=== PATIENT | male | born 1965 | race Caucasian/White ===

== ENCOUNTER 2017-09-07 06:24 | Observation (INO) | payer OTHER ==
[~2017-09-07] VITALS: Ht 188 cm; Wt 79.4 kg
--- NOTE | 2017-09-07 06:35 | ED GI/GU/ABDOMINAL COMPLAINT ---
History of Present Illness General Chief Complaint: Abdominal Pain/Flank Pain Stated Complaint: ABD PAIN, V/ N Source: patient Exam Limitations: no limitations Vital Signs & Intake/Output Vital Signs & Intake/Output Vital Signs Date Time Temp Pulse Resp B/P B/P Pulse O2 O2 Flow FiO2 Mean Ox Delivery Rate 09/07 1301 98.0 50 16 143/63 96 Room Air 09/07 1045 98.5 85 18 116/59 98 Room Air 09/07 0900 98 Room Air 09/07 0808 98.2 09/07 0629 98.1 52 24 171/79 99 Room Air Allergies Coded Allergies: No Known Allergies (09/07/17) Triage Note: 52YO MALE TO RM 7 FROM HOME W/CO RLQ PAIN THAT RADIATES TO R FLANK SINCE 429. ALSO CO NAUSEA Triage Nurses Notes Reviewed? yes Onset: Gradual Duration: hour(s): Timing: recent history Quality/Severity: sharpness Location: right flank, right lower quadrant Radiation: RLQ Activities at Onset: sleep Prior Abdominal Problems: similar symptoms Associated Symptoms: nausea/vomiting HPI: 52 yo gentleman in prior good health presents with nearly 3 hours of right flank pain, radiating to the right lower quadrant, associated with nausea. 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 He can't get comfortable." No fever, chills, diarrhea, chest pain, dysuria. He is otherwise well. (Trinity ASTUDILLO,Farhad Panchal) Reconcile Medications Diazepam 5 MG TABLET 1 TAB PO AD PRN MUSCLE SPASMS (Reported) Hydromorphone HCl (Dilaudid) 2 MG TABLET 1 TAB PO Q6P PRN PAIN Ondansetron (Zofran Odt) 4 MG TAB.RAPDIS 1 TAB SL TID PRN NAUSEA Oxycodone HCl/Acetaminophen (Percocet 10-325 MG Tablet) 10 MG-325 MG TABLET 1 TAB PO Q4-6H PRN PAIN (Reported) Tamsulosin HCl (Flomax) 0.4 MG CAP.ER.24H 1 CAP PO DAILY Helga Martínez (Adrianna ASTUDILLO,Geneva Betancur) Past History Medical History Any Pertinent Medical History? see below for history Musculoskeletal: chronic pain Surgical History Surgical History: spinal fusion Family History Hx Contributory? No (Trinity ASTUDILLO,Farhad Panchal) Review of Systems Review of Systems Constitutional: Reports: no symptoms. EENTM: Reports: no symptoms. Respiratory: Reports: no symptoms. Cardiovascular: Reports: no symptoms. GI: Reports: no symptoms. Genitourinary: Reports: no symptoms. Musculoskeletal: Reports: no symptoms. Skin: Reports: no symptoms. Neurological/Psychological: Reports: no symptoms. Hematologic/Endocrine: Reports: no symptoms. Immunologic/Allergic: Reports: no symptoms. All Other Systems: Reviewed and Negative (Trinity ASTUDILLO,Farhad Panchal) Physical Exam Physical Exam General Appearance: well developed/nourished, moderate distress Head: atraumatic, normal appearance Eyes: Bilateral: normal appearance. Ears, Nose, Throat, Mouth: hearing grossly normal Neck: normal inspection, supple, full range of motion Respiratory: normal breath sounds, chest non-tender, no respiratory distress, quiet respiration, lungs clear Cardiovascular: regular rate/rhythm Gastrointestinal: normal bowel sounds, soft, mildtenderness at rlq. no rebound or guarding. Back: muscle spasm, no vertebral tenderness, right lumbar tenderness w/ spasm to palpation. Extremities: normal range of motion Neurologic/Psych: no motor/sensory deficits, awake, alert, oriented x 3 Skin: intact, normal color, warm/dry Core Measures ACS in differential dx? No Sepsis Present: No Sepsis Focused Exam Completed? No (Trinity ASTUDILLO,Farhad Panchal) Progress Differential Diagnosis: kidney stones vs appy vs other. Plan of Care: Orders Procedure Date/time Status Regular Diet 09/[address] in observation 09/07 1302 Active ED Holding Orders 09/07 1302 Active Vital Signs 09/07 1302 Active Code Status 09/07 1302 Active URINALYSIS 09/07 0642 Active LIPASE 09/07 0636 Complete HEPATIC FUNCTION PANEL 09/07 0636 Complete CBC WITHOUT DIFFERENTIAL 09/07 0636 Complete BASIC METABOLIC PANEL 09/07 0636 Complete AMYLASE 09/07 0636 Complete Current Medications Sig/Terra Start time Last Medication Dose Stop Time Status Admin Hydromorphone HCl 1 MG ONCE ONE 09/07 1315 UNVr (Dilaudid) 09/07 1316 Laboratory Tests 09/07/17 0640: Anion Gap 13, Estimated GFR > 60, BUN/Creatinine Ratio 23.8, Glucose 138 H, Calcium 10.6 H, Total Bilirubin 0.5, Direct Bilirubin 0.2, AST 75 H, ALT 117 H, Alkaline Phosphatase 85, Total Protein 7.9, Albumin 4.7, Amylase 70, Lipase 59, CBC w Diff NO MAN DIFF REQ, RBC 5.26, MCV 91.6, MCH 30.3, MCHC 33.1, RDW 13.3, MPV 8.4, Gran % 66.1, Lymphocytes % 25.5, Monocytes % 7.6, Eosinophils % 0.5, Basophils % 0.3, Absolute Granulocytes 8.4 H, Absolute Lymphocytes 3.3, Absolute Monocytes 1.0 H, Absolute Eosinophils 0.1, Absolute Basophils 0 Diagnostic Imaging: Viewed by Me: CT Scan. Discussed w/RAD: CT Scan. Initial ED EKG: none Hand-Off Endorsed To: Adrianna ASTUDILLO,Geneva Betancur Endorsed Time: 0700 Pending: CT, labs (Trinity ASTUDILLO,Farhad Panchal) Radiology Impression: PATIENT: DEIDRA ROTH PRESENT AGE: 52 PATIENT ACCOUNT NO: [id number] : 67 LOCATION: [facility] ORDERING PHYSICIAN: Farhad Petersen MD SERVICE DATE: 09/07/17 EXAM TYPE: CAT - CT ABD & PELVIS W/O IV CONTRAS EXAMINATION: CT ABDOMEN AND PELVIS WITHOUT CONTRAST CLINICAL INFORMATION: Right lower quadrant pain. COMPARISON: None TECHNIQUE: Multidetector volumetric imaging was performed from the superior aspect of the liver through the pubic symphysis. Sagittal and coronal reformatted images were obtained on the technologist's workstation. No oral or intravenous contrast. DLP: 297 mGy-cm FINDINGS: LUNG BASES: There is linear scarring versus disc atelectasis at the posterior bases. No airspace consolidation or effusion. LIVER, GALLBLADDER, AND BILIARY TREE: The liver is borderline enlarged measuring 20.5 cm in length. Liver surface is smooth. There is no focal hepatic parenchymal lesion or intrahepatic biliary ductal dilatation. There is a 5 mm dependent calculus in the gallbladder. No gallbladder wall thickening or pericholecystic inflammatory changes PANCREAS: Unremarkable. SPLEEN: Unremarkable. ADRENAL GLANDS: Unremarkable. KIDNEYS AND URETERS: There is mild fullness right renal collecting system and mild fullness right ureter. There may be some borderline stranding around the ureteropelvic junction. A punctate nonobstructing calculus is in the right lower pole under 3 mm. No significant perinephric stranding. The left kidney and ureter are normal in caliber and show no calculus or perinephric stranding. There is probable small cortical cyst left lower pole too small to characterize with density measurements. BLADDER: Punctate calculus under 4 mm posterior right bladder base close to the trigone either bladder side ureteral vesicle junction or just passed. No bladder wall thickening. GASTROINTESTINAL TRACT: There is no bowel obstruction or inflammatory changes in the bowel mesentery. The appendix is normal. There is no ascites or fluid collection. No free air. ABDOMINAL WALL: No significant hernia is appreciated. LYMPH NODES: No lymphadenopathy. VASCULAR: Unremarkable. PELVIC VISCERA: Unremarkable. OSSEOUS STRUCTURES: No acute bony abnormality. Prior lumbosacral fusion with bilateral rods and pedicle screws L5 and S1. IMPRESSION: 1. Mild fullness right collecting system and right ureter with borderline stranding around right ureteropelvic junction. There is a punctate calculus under 4 mm at the right bladder base close to the trigone either bladder side of ureterovesical junction or just passed. 2. Punctate nonobstructing right lower pole calculus. No left calculi. 3. Normal appendix. DICTATED BY: Harrison Robertson MD DATE/TIME DICTATED:09/07/17706 [employer] MANAGER:KALYN DATE/TIME TRANSCRIBED:09/07/17706 CONFIDENTIAL, DO NOT COPY WITHOUT APPROPRIATE AUTHORIZATION. <Electronically signed in Other Vendor System> SIGNED BY: Harrison Robertson MD 09/07/17 0724 Comments: Patient has been updated on labs and CAT scan results. There is no pain in the right upper quadrant. The pain has come back in his right flank and right lower quadrant. There is no rebound or guarding. We'll give 4 more milligrams of morphine and reevaluate. Sober the patient has required 2 doses of morphine, 2 doses of Dilaudid as well as the Toradol that he received originally. Patient states the pain goes away for approximately half an hour 5 minutes and then it comes back. Case has been discussed with Dr. CHAPIN who suggests that the patient be admitted to the medical service for pain control if we cannot get his pain controlled here in the emergency department. (Adrianna ASTUDILLO,Geneva Betancur) Departure Departure Condition: Stable Departure Forms: Customer Survey General Discharge Information (Trinity ASTUDILLO,Farhad Panchal) Departure Disposition: STILL A PATIENT Clinical Impression Primary Impression: Flank pain Secondary Impressions: Kidney stone on right side Referrals: Pasha Magana MD Additional Instructions: Follow up with Dr. Magana Take Dilaudid as needed for pain Take Flomax as directed Take Zofran as needed for nausea Return if symptoms worsen or for any concerns Prescriptions: Current Visit Scripts Hydromorphone HCl (Dilaudid) 1 TAB PO Q6P PRN PAIN #16 TAB Tamsulosin HCl (Flomax) 1 CAP PO DAILY #14 CAP Ondansetron (Zofran Odt) 1 TAB SL TID PRN NAUSEA #10 TAB Observation Note Spoke With: Janette Medina MD Physician Advisor Notified: ADRIANNA ASTUDILLO,GENEVA Betancur Place Patient In: Non-ED OBS Care Area Rationale for Observation: My rational for observation is as follows [patient will need observation for pain control. Urology consultation, IV fluids]. (Adrianna ASTUDILLO,Geneva Betancur)
[2017-09-07 06:51] LABS: ABSOLUTE BASOPHIL COUNT 0 /CUMM (0.0-0.2); ABSOLUTE EOSINOPHIL COUNT 0.1 /CUMM (0.0-0.7); ABSOLUTE GRANULOCYTE CT 8.4 /CUMM (1.4-6.5); ABSOLUTE LYMPH COUNT 3.3 /CUMM (1.2-3.4); BASOPHIL % 0.3 % (0.0-2.0); EOSINOPHIL % 0.5 % (0-5); GRANULOCYTE % 66.1 % (42.2-75.2); HEMATOCRIT 48.2 % (42-52); MEAN CORPUSCULAR HGB 30.3 PG (27.0-31.0); MEAN CORPUSCULAR HGB CONC 33.1 G/DL (33.0-37.0); MEAN CORPUSCULAR VOLUME 91.6 FL (80.0-94.0); MEAN PLATELET VOLUME 8.4 FL (7.4-10.4); PLATELET COUNT 254 /CUMM (130-400); RBC DISTRIBUTION WIDTH 13.3 % (11.5-14.5); RED BLOOD CELL CT 5.26 /CUMM (4.70-6.10); WHITE BLOOD CELL COUNT 12.8 /CUMM (4.8-10.8)
--- NOTE | 2017-09-07 07:24 | CT SCAN REPORT ---
EXAMINATION: CT ABDOMEN AND PELVIS WITHOUT CONTRAST CLINICAL INFORMATION: Right lower quadrant pain. COMPARISON: None TECHNIQUE: Multidetector volumetric imaging was performed from the superior aspect of the liver through the pubic symphysis. Sagittal and coronal reformatted images were obtained on the technologist's workstation. No oral or intravenous contrast. DLP: 297 mGy-cm FINDINGS: LUNG BASES: There is linear scarring versus disc atelectasis at the posterior bases. No airspace consolidation or effusion. LIVER, GALLBLADDER, AND BILIARY TREE: The liver is borderline enlarged measuring 20.5 cm in length. Liver surface is smooth. There is no focal hepatic parenchymal lesion or intrahepatic biliary ductal dilatation. There is a 5 mm dependent calculus in the gallbladder. No gallbladder wall thickening or pericholecystic inflammatory changes PANCREAS: Unremarkable. SPLEEN: Unremarkable. ADRENAL GLANDS: Unremarkable. KIDNEYS AND URETERS: There is mild fullness right renal collecting system and mild fullness right ureter. There may be some borderline stranding around the ureteropelvic junction. A punctate nonobstructing calculus is in the right lower pole under 3 mm. No significant perinephric stranding. The left kidney and ureter are normal in caliber and show no calculus or perinephric stranding. There is probable small cortical cyst left lower pole too small to characterize with density measurements. BLADDER: Punctate calculus under 4 mm posterior right bladder base close to the trigone either bladder side ureteral vesicle junction or just passed. No bladder wall thickening. GASTROINTESTINAL TRACT: There is no bowel obstruction or inflammatory changes in the bowel mesentery. The appendix is normal. There is no ascites or fluid collection. No free air. ABDOMINAL WALL: No significant hernia is appreciated. LYMPH NODES: No lymphadenopathy. VASCULAR: Unremarkable. PELVIC VISCERA: Unremarkable. OSSEOUS STRUCTURES: No acute bony abnormality. Prior lumbosacral fusion with bilateral rods and pedicle screws L5 and S1. IMPRESSION: 1. Mild fullness right collecting system and right ureter with borderline stranding around right ureteropelvic junction. There is a punctate calculus under 4 mm at the right bladder base close to the trigone either bladder side of ureterovesical junction or just passed. 2. Punctate nonobstructing right lower pole calculus. No left calculi. 3. Normal appendix.
[2017-09-07] MEDS ORDERED: PERCOCET 10-321 EACH PO (09:12)
[2017-09-07] MEDS ORDERED: DIAZEPAM5 M1 PO (09:13)
[2017-09-07] MEDS ORDERED: FLOMAX0.4 M1 PO (12:48)
[2017-09-07] MEDS ORDERED: ZOFRAN ODT4 M1 SL (12:48)
[2017-09-07] MEDS ORDERED: DILAUDID2 M1 PO (12:48)
--- NOTE | 2017-09-07 13:24 | History & Physical ---
Laura Yao 09/07/17 1323: General Information and HPI MD Statement: I have seen and personally examined DEIDRA ROTH and documented this H&P. The patient is a 52 year old M who presented with a patient stated chief complaint of RIGHT FLANK PAIN Source of Information: patient, family Exam Limitations: no limitations History of Present Illness: 52 year old gentleman, current smoker with 60 pack years, discectomy and S1/L5 fusion followed by Dr Leslie for pain management, no regular medical follow up in many years. Brought in by for severe right sided sharp flank pain which started around 4 am this morning. Pain associated with nausea and 2 episodes of non bloody vomiting. Denies fever, chills, dyuria, urinary frequency/hesitency, previous history of kidney stones,rashes, joint pain/swelling, chest pain,shortness of breath or family history kidney stones. Reports that he drinks adequate water daily and eats a balanced diet. Allergies/Medications Allergies: Coded Allergies: No Known Allergies (09/07/17) Home Med list Cephalexin (Keflex) 500 MG CAPSULE 1 CAP PO TID UTI/kidney stone . Diazepam 5 MG TABLET 1 TAB PO AD PRN MUSCLE SPASMS (Reported) Hydromorphone HCl (Dilaudid) 2 MG TABLET 1 TAB PO Q6P PRN PAIN Ondansetron (Zofran Odt) 4 MG TAB.RAPDIS 1 TAB SL TID PRN NAUSEA Oxycodone HCl/Acetaminophen (Percocet 10-325 MG Tablet) 10 MG-325 MG TABLET 1 TAB PO Q4-6H PRN PAIN (Reported) Tamsulosin HCl (Flomax) 0.4 MG CAP.ER.24H 1 CAP PO DAILY Kindey Stone Compliance With Home Meds: GOOD Past History Travel History Traveled to [place] past 21 day No Medical History Neurological: NONE EENT: NONE Cardiovascular: NONE Respiratory: NONE Gastrointestinal: NONE Hepatic: NONE Renal: NONE Musculoskeletal: chronic pain Psychiatric: NONE Endocrine: NONE Blood Disorders: NONE Cancer(s): NONE FISH WARDEN/Reproductive: NONE Surgical History Surgical History: spinal fusion Past Family/Social History Family History Relations & Conditions if any Relation not specified for: *No pertinent family history Psychosocial History Where do you live? Home Smoking Status: Current Everyday Smoker ETOH Use: occasional use Illicit Drug Use: denies illicit drug use Functional Ability ADLs Independent: dressing, eating, toileting, bathing. Ambulation: independent IADLs Independent: shopping, housework, finances, food prep, telephone, transportation , medication admin. Review of Systems Review of Systems Constitutional: Reports: see HPI. Exam & Diagnostic Data Last 24 Hrs of Vital Signs/I&O Vital Signs Date Time Temp Pulse Resp B/P B/P Pulse O2 O2 Flow FiO2 Mean Ox Delivery Rate 09/07 1301 98.0 50 16 143/63 96 Room Air 09/07 1045 98.5 85 18 116/59 98 Room Air 09/07 0900 98 Room Air 09/07 0808 98.2 09/07 0629 98.1 52 24 171/79 99 Room Air Intake & Output 09/07 1600 09/07 0800 09/07 0000 Intake Total Output Total Balance Patient 175 lb Weight Physical Exam General Appearance Alert, Oriented X3, Cooperative, No Acute Distress Skin tatoos HEENT Atraumatic, PERRLA, EOMI, Mucous Membr. moist/pink Neck Supple, No JVD, +2 Carotid Pulse wo Bruit Cardiovascular Regular Rate, Normal S1, Normal S2 Lungs Clear to Auscultation, Normal Air Movement Abdomen Normal Bowel Sounds, tenderness to palpation in lower abdomen, + R CVA tenderness Extremities No Edema Last 24 Hrs of Labs/Albert: Laboratory Tests 09/07/17 0640: Anion Gap 13, Estimated GFR > 60, BUN/Creatinine Ratio 23.8, Glucose 138 H, Calcium 10.6 H, Total Bilirubin 0.5, Direct Bilirubin 0.2, AST 75 H, ALT 117 H, Alkaline Phosphatase 85, Total Protein 7.9, Albumin 4.7, Amylase 70, Lipase 59, CBC w Diff NO MAN DIFF REQ, RBC 5.26, MCV 91.6, MCH 30.3, MCHC 33.1, RDW 13.3, MPV 8.4, Gran % 66.1, Lymphocytes % 25.5, Monocytes % 7.6, Eosinophils % 0.5, Basophils % 0.3, Absolute Granulocytes 8.4 H, Absolute Lymphocytes 3.3, Absolute Monocytes 1.0 H, Absolute Eosinophils 0.1, Absolute Basophils 0 Diagnostic Data Other Results SERVICE DATE: 09/07/17-635 EXAM TYPE: CAT - CT ABD & PELVIS W/O IV CONTRAS FINDINGS: LUNG BASES: There is linear scarring versus disc atelectasis at the posterior bases. No airspace consolidation or effusion. LIVER, GALLBLADDER, AND BILIARY TREE: The liver is borderline enlarged measuring 20.5 cm in length. Liver surface is smooth. There is no focal hepatic parenchymal lesion or intrahepatic biliary ductal dilatation. There is a 5 mm dependent calculus in the gallbladder. No gallbladder wall thickening or pericholecystic inflammatory changes PANCREAS: Unremarkable. SPLEEN: Unremarkable. ADRENAL GLANDS: Unremarkable. KIDNEYS AND URETERS: There is mild fullness right renal collecting system and mild fullness right ureter. There may be some borderline stranding around the ureteropelvic junction. A punctate nonobstructing calculus is in the right lower pole under 3 mm. No significant perinephric stranding. The left kidney and ureter are normal in caliber and show no calculus or perinephric stranding. There is probable small cortical cyst left lower pole too small to characterize with density measurements. BLADDER: Punctate calculus under 4 mm posterior right bladder base close to the trigone either bladder side ureteral vesicle junction or just passed. No bladder wall thickening. GASTROINTESTINAL TRACT: There is no bowel obstruction or inflammatory changes in the bowel mesentery. The appendix is normal. There is no ascites or fluid collection. No free air. ABDOMINAL WALL: No significant hernia is appreciated. LYMPH NODES: No lymphadenopathy. VASCULAR: Unremarkable. PELVIC VISCERA: Unremarkable. OSSEOUS STRUCTURES: No acute bony abnormality. Prior lumbosacral fusion with bilateral rods and pedicle screws L5 and S1. IMPRESSION: 1. Mild fullness right collecting system and right ureter with borderline stranding around right ureteropelvic junction. There is a punctate calculus under 4 mm at the right bladder base close to the trigone either bladder side of ureterovesical junction or just passed. 2. Punctate nonobstructing right lower pole calculus. No left calculi. 3. Normal appendix. Assessment/Plan Assessment: 52 year old gentleman, current smoker with 60 pack years, discectomy and S1/L5 fusion followed by Dr Leslie for pain management, no regular medical follow up in many years here for evaluation of right sided flank pain. Afebrile, vitals stable, Labs significiant for mild leukocytosis, hypercalciemia and mild transaminitis. CT/abd wo contrast significant for mild fullness right collecting system and right ureter with borderline stranding around right ureteropelvic junction. Punctate calculus under 4 mm at the right bladder base close to the trigone either bladder side of ureterovesical junction, unctate nonobstructing right lower pole calculus. Assessment and plan: Nephrolitithiasis place as observation to Gen med floor, vitals per protocol Unclear etiology at this time. Hyperca could be a possiblity. Will continue to trend and if it remains elevated despite hydration will work it up (vit D, PTH, TSH, urinary ca), Transaminitis could also be secondary to dehydration will continue to trend as well continue IVF and keep NPO for now f/up and UA blood/urine cultures, keep off antibiotic for now, if UA is dirty or if he spikes a fever will start IV ceftriaxone bladder scan in ED showed low bladder volume Zofran PRN for nausea, f/up EKG for QTC Pain control with IV morphine 2mg q4 hrs PRN Urology consulted. Chronic Back pain CTPMP checked, recently filled 07/24/2017 Percocet 10/325 #120 tab and diazepam 5mg #45 tab. He seems to getting monthly refills with 4 providers once pain is improved can start him on his home medication will start his diazepam DVT: sc hepain NPO for now full code As Ranked By This Provider Problem List: 1. Flank pain 2. Kidney stone on right side Core Measures/Misc (11/25) Acute Coronary Syndrome ACS Diagnosis: No Congestive Heart Failure Congestive Heart Failure Diagnosis No Cerebrovascular Accident CVA/TIA Diagnosis: No VTE (View Protocol) VTE Risk Factors Smoker No Mechanical VTE Prophylaxis d/t N/A MechProphylax Ordered No VTE Pharm Prophylaxis d/t NA PharmProphylax ordered Sepsis (View protocol) Sepsis Present: No If YES complete Sepsis Event Note If YES complete Sepsis Event Note Janette Medina MD 09/07/17 1350: Core Measures/Misc (11/25) Sepsis (View protocol) If YES complete Sepsis Event Note If YES complete Sepsis Event Note Attending MD Review Statement Attending Statement Attending MD Statement: examined this patient, discuss w/resident/PA/DISTRIBUTION TRANSFORMER ASSEMBLER, agreed w/resident/PA/DISTRIBUTION TRANSFORMER ASSEMBLER, discussed with family, reviewed EMR data (avail), discussed with nursing, discussed with case mgmt, reviewed images, amended to note Attending Assessment/Plan: 52 y/o M with pmh sig for chronic back pain, Lumbosacral fusion in the past p/w right flank and right sided back pain. Woke him up at 4 o'clock this am. Pain is present in right flank, lower abd and right sided back, described as sharp, radiating to right groin, constant, severe associated with vomiting. Any kind of moveent makes it worse. Denies fevers, chills. presented to ER and found to have mild fullness right collecting system and right ureter with borderline stranding around right ureteropelvic junction. There is a punctate calculus under 4 mm at the right bladder base close to the trigone either bladder side of ureterovesical junction or just passed on abd CT that was done in ER. Unfortanalet patient remained in pain in ER despite receiving IV pain meds which included Toradol, Morphine and Dilaudid. Urology was called and they recommended conservative Mx with pain mx , IV hydration. Decision was made to bring him as Observation on gen med / to uncontrolled pain. Pt denies any known hx of nephrolithiasis. Vital Signs Date Time Temp Pulse Resp B/P B/P Pulse O2 O2 Flow FiO2 Mean Ox Delivery Rate 09/07 1301 98.0 50 16 143/63 96 Room Air 09/07 1045 98.5 85 18 116/59 98 Room Air 09/07 0900 98 Room Air 09/07 0808 98.2 09/07 0629 98.1 52 24 171/79 99 Room Air on exam; aox3,, mild distress 2/2 to pain. cv; s1,s2, rrr resp; clear abd; soft, tender in right flank: + right CVA tenderness. ext; no edema skin: multiple tattoos. Laboratory Tests 09/07 0640 Chemistry Sodium (137 - 145 mmol/L) 144 Potassium (3.5 - 5.1 mmol/L) 4.7 Chloride (98 - 107 mmol/L) 102 Carbon Dioxide (22 - 30 mmol/L) 28 Anion Gap (5 - 16) 13 BUN (9 - 20 mg/dL) 19 Creatinine (0.7 - 1.2 mg/dL) 0.8 Estimated GFR (>60 ml/min) > 60 BUN/Creatinine Ratio (7 - 25 %) 23.8 Glucose (65 - 99 mg/dL) 138 H Calcium (8.4 - 10.2 mg/dL) 10.6 H Total Bilirubin (0.2 - 1.3 mg/dL) 0.5 Direct Bilirubin (< 0.4 mg/dL) 0.2 AST (17 - 59 U/L) 75 H ALT (21 - 72 U/L) 117 H Alkaline Phosphatase (< 127 U/L) 85 Total Protein (6.3 - 8.2 g/dL) 7.9 Albumin (3.5 - 5.0 g/dL) 4.7 Amylase (30 - 110 U/L) 70 Lipase (23 - 300 U/L) 59 Hematology CBC w Diff NO MAN DIFF REQ WBC (4.8 - 10.8 /CUMM) 12.8 H RBC (4.70 - 6.10 /CUMM) 5.26 Hgb (14.0 - 18.0 G/DL) 16.0 Hct (42 - 52 %) 48.2 MCV (80.0 - 94.0 FL) 91.6 MCH (27.0 - 31.0 PG) 30.3 MCHC (33.0 - 37.0 G/DL) 33.1 RDW (11.5 - 14.5 %) 13.3 Plt Count (130 - 400 /CUMM) 254 MPV (7.4 - 10.4 FL) 8.4 Gran % (42.2 - 75.2 %) 66.1 Lymphocytes % (20.5 - 51.1 %) 25.5 Monocytes % (1.7 - 9.3 %) 7.6 Eosinophils % (0 - 5 %) 0.5 Basophils % (0.0 - 2.0 %) 0.3 Absolute Granulocytes (1.4 - 6.5 /CUMM) 8.4 H Absolute Lymphocytes (1.2 - 3.4 /CUMM) 3.3 Absolute Monocytes (0.10 - 0.60 /CUMM) 1.0 H Absolute Eosinophils (0.0 - 0.7 /CUMM) 0.1 Absolute Basophils (0.0 - 0.2 /CUMM) 0 CT abd/pelvis: IMPRESSION: 1. Mild fullness right collecting system and right ureter with borderline stranding around right ureteropelvic junction. There is a punctate calculus under 4 mm at the right bladder base close to the trigone either bladder side of ureterovesical junction or just passed. 2. Punctate nonobstructing right lower pole calculus. No left calculi. 3. Normal appendix. A/P: 52 y/o M with pmh sig for chronic back pain, Lumbosacral fusion in the past is placed on gen med obs with right sided flank pain, UPJ stone and mild fullnes in right renal collecting system. Patient has significant tenderness in the right CVA although urinalysis is still pending. Not sure if there is any UTI or pyelonephritis. He does have leukocytosis but he is afebrile. Patient placed on general medicine observation. Please confirm his chronic narcotic regimen by going on [facility] state website. Pain will be controlled with IV narcotics at this time. Patient should receive IV hydration. Symptomatically treatment for nausea and vomiting with antiemetics such as Zofran after checking EKG to make sure the QTC is not prolonged. He claims that he has not urinated since early this morning. Patient check a bladder scan to see if there is any urinary retention. Please consult urology. Please follow-up on urinalysis, urine culture. If the urinalysis looks dirty then he should be started on antibiotics. Patient does have mild hypercalcemia. We'll continue to monitor after IV hydration. We'll start workup only if the levels do not come down. He also have abnormal transaminases. Will monitor and consider right upper quadrant ultrasound although CT does not show any evidence of cholecystitis although there is a gallstone. Pharmacologic DVT prophylaxis. Full code. Discussed with patient's girlfriend at bedside.
[2017-09-07 16:11] VITALS: BP 106/52
[2017-09-07 22:51] VITALS: BP 120/42
[2017-09-08 06:42] VITALS: BP 95/54
--- NOTE | 2017-09-08 08:14 | PN- Housestaff ---
Chidi Allan 09/08/17 0813: Subjective Follow-up For: Right flank pain Complaints: no complaints Subjective: Mr. Choi is a 52 year old former smoker who presents for right flank pain. Overnight he spiked a fever to 101 and was given 1g IV ceftriaxone. He also passed a urinary stone overnight. Review of Systems Constitutional: Reports: no symptoms. Objective Last 24 Hrs of Vital Signs/I&O Vital Signs Date Time Temp Pulse Resp B/P B/P Pulse O2 O2 Flow FiO2 Mean Ox Delivery Rate 09/08 0642 99.2 50 18 95/54 95 Room Air 09/08 0103 100.7 09/07 2306 101.0 09/07 2251 101.0 49 20 120/42 94 Room Air 09/07 2200 101.0 09/07 1611 98.5 45 18 106/52 92 Room Air 09/07 1544 97.3 52 20 108/66 96 Room Air 09/07 1301 98.0 50 16 143/63 96 Room Air 09/07 1045 98.5 85 18 116/59 98 Room Air Intake & Output 09/08 1600 09/08 0800 09/08 0000 Intake Total 980 540 Output Total 1200 Balance -220 540 Intake, IV 860 300 Intake, Oral 120 240 Number 0 0 Bowel Movements Output, Urine 1200 Patient 175 lb Weight Weight Reported by Patient Measurement Method Physical Exam General Appearance: Alert, Oriented X3, Cooperative, No Acute Distress Skin: No Rashes, No Breakdown, No Significant Lesion Skin Temp/Moisture Exam: Warm/Dry HEENT: Atraumatic, PERRLA Cardiovascular: Regular Rate, Normal S1, Normal S2, No Murmurs Lungs: Clear to Auscultation, Normal Air Movement Neurological: Normal Speech, Strength at 5/5 X4 Ext, Normal Tone Current Medications: Current Medications Sig/Terra Start time Last Medication Dose Route Stop Time Status Admin Acetaminophen 500 MG ONCE ONE 09/07 2244 DC 09/07 PO 09/07 2246 2306 Ceftriaxone Sodium 1,000 MG ONCE ONE 09/08 0430 DC 09/08 IV 09/08 0431 0510 Heparin Sodium 5,000 UNIT Q8 09/07 2200 AC 09/08 (Porcine) SC 0510 Hydromorphone HCl 1 MG ONCE ONE 09/07 1315 DC 09/07 IV 09/07 1316 1311 Hydromorphone HCl 0 .STK-MED ONE 09/07 1308 DC .ROUTE Hydromorphone HCl 0 .STK-MED ONE 09/07 1039 DC .ROUTE Morphine Sulfate 2 MG Q4P PRN 09/07 1500 AC 09/08 IV 0510 Morphine Sulfate 0 .STK-MED ONE 09/07 1434 DC .ROUTE Morphine Sulfate 2 MG Q4P PRN 09/07 1430 DC 09/07 IV 1442 Ondansetron HCl 4 MG ONCE ONE 09/07 1315 DC 09/07 IV 09/07 1316 1323 Ondansetron HCl 0 .STK-MED ONE 09/07 1313 DC .ROUTE Sodium Chloride 1,000 ML .Q10H 09/07 1415 AC 09/08 IV 0526 Last 24 Hrs of Lab/Albert Results Last 24 Hrs of Labs/Mics: Laboratory Tests 09/08/17 0819: Anion Gap 11, Estimated GFR > 60, BUN/Creatinine Ratio 20.0, Total Bilirubin 0.9 , Direct Bilirubin 0.1, AST 45, ALT 84 H, Alkaline Phosphatase 64, Total Protein 6.6, Albumin 3.7, CBC w Diff NO MAN DIFF REQ, RBC 4.67 L, MCV 91.7, MCH 30.4, MCHC 33.2, RDW 13.4, MPV 9.0, Gran % 66.4, Lymphocytes % 25.5, Monocytes % 7.8, Eosinophils % 0.1, Basophils % 0.2, Absolute Granulocytes 7.7 H, Absolute Lymphocytes 3.0, Absolute Monocytes 0.9 H, Absolute Eosinophils 0, Absolute Basophils 0 09/07/17 1920: Urine Opiates Screen > 4000.00 H, Methadone Screen < 40, Barbiturate Screen < 60, Ur Phencyclidine Scrn < 6.00, Amphetamines Screen < 100, U Benzodiazepines Scrn > 800 H, Urine Cocaine Screen < 50, Urine Cannabis Screen 77.40 H, Urine Color YEL, Urine Clarity CLEAR, Urine pH 6.0, Ur Specific [place] 1.025, Urine Protein TRACE H, Urine Ketones 15 H, Urine Nitrite NEG, Urine Bilirubin NEG, Urine Urobilinogen 1.0, Ur Leukocyte Esterase NEG, Ur Microscopic SEDIMENT EXAMINED, Urine RBC 25-50 H, Ur Epithelial Cells RARE, Urine Mucus FEW, Urine Hemoglobin LARGE H, Urine Glucose NEG 09/07/17 1505: Ur Random Creatinine Cancelled, Ur Random Sodium Cancelled, Ur Random Potassium Cancelled, Fraction Sodium Excret Cancelled Microbiology 09/07 1920 URINE ROUT: Urine Culture - RES 09/07 1540 BLOOD: Blood Culture - RECD 09/07 1510 BLOOD: Blood Culture - RES Assessment/Plan Assessment: Assessment: 52 year old gentleman, current smoker with 60 pack years, discectomy and S1/L5 fusion followed by Dr Lselie for pain management, no regular medical follow up in many years here for evaluation of right sided flank pain. Afebrile, vitals stable, Labs significiant for mild leukocytosis, hypercalciemia and mild transaminitis. CT/abd wo contrast significant for mild fullness right collecting system and right ureter with borderline stranding around right ureteropelvic junction. Punctate calculus under 4 mm at the right bladder base close to the trigone either bladder side of ureterovesical junction, unctate nonobstructing right lower pole calculus. Assessment and plan: Nephrolitithiasis place as observation to Gen med floor, vitals per protocol Unclear etiology at this time. Hyperca could be a possiblity. Will continue to trend and if it remains elevated despite hydration will work it up (vit D, PTH, TSH, urinary ca), Transaminitis could also be secondary to dehydration will continue to trend as well continue IVF and keep NPO for now Started IV ceftriaxone for fever of 101 bladder scan in ED showed low bladder volume Zofran PRN for nausea, f/up EKG for QTC Pain control with IV morphine 2mg q4 hrs PRN Urology consulted. Chronic Back pain CTPMP checked, recently filled 07/24/2017 Percocet 10/325 #120 tab and diazepam 5mg #45 tab. He seems to getting monthly refills with 4 providers once pain is improved can start him on his home medication will start his diazepam DVT: sc hepain NPO for now full code Problem List: 1. Kidney stone on right side Patient passed urinary stone overnight, states right flank pain is significantly improved Spiked a fever to 101, requiring 1g ceftriaxone Followup UA Consult placed for urology Pain Ratin Pain Location: na Pain Goal: Remain pain free Pain Plan: na Tomorrow's Labs & Rationales: katherine Medina MD,Janette 09/08/17 1231: Attending MD Review Statement Attending Statement Attending MD Statement: examined this patient, discuss w/resident/PA/CODE MACHINE OPERATOR, agreed w/resident/PA/CODE MACHINE OPERATOR, discussed with family, reviewed EMR data (avail), discussed with nursing, discussed with case mgmt, reviewed images, amended to note Attending Assessment/Plan: Patient seen and examined, overall feeling much better. Pain is gone. He was able to pass the stone. He did have a fever spike. Patient was given a dose of ceftriaxone overnight. Patient wants to go home today as he's feeling overall better. We can discharge him on oral antibiotics to complete a total of 10 day course. He will need to follow-up with urologist as an outpatient. The rest of his home medications will be continued.
[2017-09-08 09:18] LABS: ABSOLUTE BASOPHIL COUNT 0 /CUMM (0.0-0.2); ABSOLUTE EOSINOPHIL COUNT 0 /CUMM (0.0-0.7); ABSOLUTE GRANULOCYTE CT 7.7 /CUMM (1.4-6.5); ABSOLUTE MONOCYTE COUNT 0.9 /CUMM (0.10-0.60); BASOPHIL % 0.2 % (0.0-2.0); EOSINOPHIL % 0.1 % (0-5); GRANULOCYTE % 66.4 % (42.2-75.2); MEAN CORPUSCULAR HGB 30.4 PG (27.0-31.0); MEAN CORPUSCULAR HGB CONC 33.2 G/DL (33.0-37.0); MEAN CORPUSCULAR VOLUME 91.7 FL (80.0-94.0); PLATELET COUNT 203 /CUMM (130-400); RBC DISTRIBUTION WIDTH 13.4 % (11.5-14.5); RED BLOOD CELL CT 4.67 /CUMM (4.70-6.10); WHITE BLOOD CELL COUNT 11.6 /CUMM (4.8-10.8)
[2017-09-08 09:43] LABS: HEMATOCRIT 42.8 % (42-52)
[2017-09-08] MEDS ORDERED: KEFLEX500 M1 PO ×2 (11:18→11:43)
--- NOTE | 2017-09-08 11:36 | Patient Discharge Instructions ---
Discharge Instructions General Discharge Information Special Instructions: - Please follow up with your primary care physician within 1-2 weeks of discharge. Inform your primary care physician of this admission to [facility]. - Continue your current medications per discharge instructions. - Please watch for these problems: Fever, Chills, Nausea, Vomiting, Shortness of Breath, Productive Cough, Chest Pain/Discomfort, Abdominal Pain, Active Bleeding or Bloody urine/stool. Acute Coronary Syndrome Inclusion Criteria At DC or during hospital stay patient has or had the following: ACS DIAGNOSIS No Discharge Core Measures Meds if any: Prescribed or Continued at Discharge Meds if any: NOT Prescribed or Continued at Discharge Congestive Heart Failure Inclusion Criteria At DC or during hospital stay patient has or had the following: CHF DIAGNOSIS No Discharge Core Measures Meds if any: Prescribed or Continued at Discharge Meds if any: NOT Prescribed or Continued at Discharge Cerebrovascular accident Inclusion Criteria At DC or during hospital stay patient has or had the following: CVA/TIA Diagnosis No Discharge Core Measures Meds if any: Prescribed or Continued at Discharge Meds if any: NOT Prescribed or Continued at Discharge Venous thromboembolism Inclusion Criteria VTE Diagnosis No VTE Type NONE VTE Confirmed by (Test) NONE Discharge Core Measures - Per Current guidelines, there needs to be overlap - treatment for the first 5 days of Warfarin therapy. - If discharged on Warfarin prior to 5 days of - overlap therapy, the patient will need to be - assessed for post discharge needs including - *Post discharge parental anticoagulation - *Warfarin and/or parental anticoagulation education - *Follow up date to check INR post discharge At least 5 days overlap therapy as Inpatient No Meds if any: Prescribed or Continued at Discharge Note: Overlap Therapy is Warfarin and Anticoagulant Meds if any: NOT Prescribed or Continued at Discharge
--- NOTE | 2017-09-08 11:41 | Discharge Summary ---
Visit Information Visit Dates Admission Date: 09/07/17 Discharge Date: 09/08/17 Hospital Course Course Attending Physician: Adam ASTUDILLO,Janette Primary Care Physician: Patient Has No Primary Care Dr Hospital Course: 52 year old gentleman, current smoker with 60 pack years, discectomy and S1/L5 fusion followed by Dr Leslie for pain management, no regular medical follow up in many years here for evaluation of right sided flank pain. Afebrile, vitals stable, Labs significiant for mild leukocytosis, hypercalciemia and mild transaminitis. CT/abd wo contrast significant for mild fullness right collecting system and right ureter with borderline stranding around right ureteropelvic junction. Punctate calculus under 4 mm at the right bladder base close to the trigone either bladder side of ureterovesical junction, unctate nonobstructing right lower pole calculus.. Overnight of his admission he spiked a fever and was given 1g ceftriaxone for possible urinary infection. His urinalysis was not helpful but his urine culture remained negative. He subsequently passed the stone. He is being discharged to home with a 10 day prescription for Keflex. He was instructed to follow up with an outside primary provider. Urology was called but they recommended conservative management. Patient to follow-up with his own urologist. Physical exam General Appearance Alert, Oriented X3, Cooperative, No Acute Distress Skin tatoos HEENT Atraumatic, PERRLA, EOMI, Mucous Membr. moist/pink Neck Supple, No JVD, +2 Carotid Pulse wo Bruit Cardiovascular Regular Rate, Normal S1, Normal S2 Lungs Clear to Auscultation, Normal Air Movement Abdomen Normal Bowel Sounds, tenderness to palpation in lower abdomen, + R CVA tenderness Extremities No Edema Laboratory: -Elevated white count (12.8) -Elevated LFT (AST 75, ALT 117) -Negative UA/microbiology -Admitted to Gen Med Problem list/Assessment/Hospital Course: #Non-obstructive nephrolithiasis #Intermittent fever likely 2/2 nephrolithiasis induced infection/pyelonephritis #Chronic back pain On admission, patient was placed on observation on general medicine for, with unclear etiology of nephrolithiasis, adequate hydration was given with vitals per protocol and kept n.p.o. for possible procedures from urology. He spiked a fever on blood blood loss and we started IV ceftriaxone for 1 time, and pending further urologic evaluation of urology. On subsequent day, patient passed a stone spontaneously without any more spiking a fever. At this point patient was stable for discharge and was sent home with Keflex 500 mg twice daily 10 days. Urology referral was made in the chart DVT: sc hepain Regular diet full code Allergies: Coded Allergies: No Known Allergies (09/07/17) Pertinent Lab Results: SERVICE DATE: 09/07/17 EXAM TYPE: CAT - CT ABD & PELVIS W/O IV CONTRAS IMPRESSION: 1. Mild fullness right collecting system and right ureter with borderline stranding around right ureteropelvic junction. There is a punctate calculus under 4 mm at the right bladder base close to the trigone either bladder side of ureterovesical junction or just passed. 2. Punctate nonobstructing right lower pole calculus. No left calculi. 3. Normal appendix. Laboratory Tests 09/08 09/07 0819 1920 Chemistry Sodium (137 - 145 mmol/L) 142 Potassium (3.5 - 5.1 mmol/L) 4.2 Chloride (98 - 107 mmol/L) 108 H Carbon Dioxide (22 - 30 mmol/L) 23 Anion Gap (5 - 16) 11 BUN (9 - 20 mg/dL) 14 Creatinine (0.7 - 1.2 mg/dL) 0.7 Estimated GFR (>60 ml/min) > 60 BUN/Creatinine Ratio (7 - 25 %) 20.0 Total Bilirubin (0.2 - 1.3 mg/dL) 0.9 Direct Bilirubin (< 0.4 mg/dL) 0.1 AST (17 - 59 U/L) 45 ALT (21 - 72 U/L) 84 H Alkaline Phosphatase (< 127 U/L) 64 Total Protein (6.3 - 8.2 g/dL) 6.6 Albumin (3.5 - 5.0 g/dL) 3.7 Hematology CBC w Diff NO MAN DIFF REQ WBC (4.8 - 10.8 /CUMM) 11.6 H RBC (4.70 - 6.10 /CUMM) 4.67 L Hgb (14.0 - 18.0 G/DL) 14.2 Hct (42 - 52 %) 42.8 MCV (80.0 - 94.0 FL) 91.7 MCH (27.0 - 31.0 PG) 30.4 MCHC (33.0 - 37.0 G/DL) 33.2 RDW (11.5 - 14.5 %) 13.4 Plt Count (130 - 400 /CUMM) 203 MPV (7.4 - 10.4 FL) 9.0 Gran % (42.2 - 75.2 %) 66.4 Lymphocytes % (20.5 - 51.1 %) 25.5 Monocytes % (1.7 - 9.3 %) 7.8 Eosinophils % (0 - 5 %) 0.1 Basophils % (0.0 - 2.0 %) 0.2 Absolute Granulocytes (1.4 - 6.5 /CUMM) 7.7 H Absolute Lymphocytes (1.2 - 3.4 /CUMM) 3.0 Absolute Monocytes (0.10 - 0.60 /CUMM) 0.9 H Absolute Eosinophils (0.0 - 0.7 /CUMM) 0 Absolute Basophils (0.0 - 0.2 /CUMM) 0 Toxicology Urine Opiates Screen (>2000 NG/ML) > 4000.00 H Methadone Screen (>300 NG/ML) < 40 Barbiturate Screen (>200 NG/ML) < 60 Ur Phencyclidine Scrn (>25 NG/ML) < 6.00 Amphetamines Screen (>1000 NG/ML) < 100 U Benzodiazepines Scrn (>200 NG/ML) > 800 H Urine Cocaine Screen (>300 NG/ML) < 50 Urine Cannabis Screen (>50 NG/ML) 77.40 H Urines Urine Color (YEL,AMB,STR) YEL Urine Clarity (CLEAR) CLEAR Urine pH (5.0 - 8.0) 6.0 Ur Specific Garber (1.001 - 1.035) 1.025 Urine Protein (NEG,<30 MG/DL) TRACE H Urine Ketones (NEG) 15 H Urine Nitrite (NEG) NEG Urine Bilirubin (NEG) NEG Urine Urobilinogen (0.1 - 1.0 EU/dl) 1.0 Ur Leukocyte Esterase (NEG) NEG Ur Microscopic SEDIMENT EXAMINED Urine RBC (0 - 5 /HPF) 25-50 H Ur Epithelial Cells (NONE,FEW) RARE Urine Mucus (FEW,NONE) FEW Urine Hemoglobin (NEG) LARGE H Urine Glucose (N MG/DL) NEG 09/07 1505 Urines Ur Random Creatinine Cancelled Ur Random Sodium Cancelled Ur Random Potassium Cancelled Fraction Sodium Excret Cancelled Disposition Summary Disposition Principal Diagnosis: Nephrolithiasis Additional Diagnosis: None Discharge Disposition: home or self care Discharge Instructions General Discharge Information Code Status: Full Code Patient's Diet: Regular diet Patient's Activity: Activity as tolerated Follow-Up Instructions/Appts: - Please follow up with your primary care physician within 1-2 weeks of discharge. Inform your primary care physician of this admission to [facility]. - Continue your current medications per discharge instructions. - Please watch for these problems: Fever, Chills, Nausea, Vomiting, Shortness of Breath, Productive Cough, Chest Pain/Discomfort, Abdominal Pain, Active Bleeding or Bloody urine/stool. Medications at Discharge Discharge Medications: Continue taking these medications: Oxycodone HCl/Acetaminophen (Percocet 10-325 MG Tablet) 10 MG-325 MG TABLET 1 Tablet ORAL Q4-6H as needed for PAIN Comments: NOT GIVEN IN HOSPITAL Diazepam (Diazepam) 5 MG TABLET 1 Tablet ORAL As Directed as needed for MUSCLE SPASMS Comments: NOT GIVEN IN HOSPITAL Hydromorphone HCl (Dilaudid) 2 MG TABLET 1 Tablet ORAL EVERY SIX HOURS NEEDED as needed for PAIN Qty = 16 Comments: NOT GIVEN IN HOSPTIAL Tamsulosin HCl (Flomax) 0.4 MG CAP.ER.24H 1 Capsule ORAL DAILY Qty = 14 Comments: NOT GIVEN IN HOSPITAL Ondansetron (Zofran Odt) 4 MG TAB.RAPDIS 1 Tablet SUBLINGUAL THREE TIMES DAILY as needed for NAUSEA Qty = 10 Comments: Last Taken: 09/07/17 Time: 1:30 PM (IV DOSE GIVEN) Start taking the following new medications: Cephalexin (Keflex) 500 MG CAPSULE 1 Capsule ORAL THREE TIMES DAILY Qty = 30 No Refills Instructions: . Comments: NOT GIVEN IN HOSPTIAL Copies To: Unknown Copies To: Unknown Comments: NOT GIVEN IN HOSPTIAL Copies To: Unknown
== END 2017-09-08 13:57 ==
LOC: ERH 06:24 → ERHI 13:02 → 2NB 13:02 → ENRESERV 15:11 → ENTRNSPT 15:47 → EDTRNSPTSTS 15:49 → EDTRNSPT 15:49 → 2NB 15:52 → CMPTRNSPT 16:07 → 2NB 18:50 → ENPENDDIS 09-08 11:39 → 2NB 09-08 13:57
PROVIDERS: Internal Medicine; Pediatrics
DX: N20.0 Calculus of kidney (principal); F17.200 Nicotine dependence, unspecified, uncomplicated; Z98.1 Arthrodesis status; R11.2 Nausea with vomiting, unspecified; G89.29 Other chronic pain; D72.829 Elevated white blood cell count, unspecified; E83.52 Hypercalcemia; R74.0 Nonspecific elevation of levels of transaminase and lactic acid dehydrogenase [LDH]
CPT/HCPCS: 6040; 84133; 84300; 36592; 74176; 80307; 81001; 82436; 82570; 87040; 87086; 93005; 93010; 96372; 96374; 96375; 96376; G0378; J0696; J1644; J1885; J2405